=== PATIENT | male | born 1980 | race Two or more races ===

== ENCOUNTER 2016-10-26 10:33 | Emergency (ER) | payer BC ==
[2016-10-26 10:38] VITALS: BP 126/83; PULSE 64; TEMP 98.1; BMI 51.7
[2016-10-26] MEDS ORDERED: ERYTHROMYCIN 0.5% OPHTHALMIC OINTMENT 3.5 GM TUBE OD ONE (12:13)
[2016-10-26] MEDS ORDERED: ERYTHROMYCIN 0.5% OPHTHALMIC OINTMENT 3.5 GM TUBE ONE (12:15)
--- NOTE | 2016-10-26 12:18 | PDOC ---
History of Present Illness - General Chief Complaint: Eye Problem Stated Complaint: EYE IRRITATION Time Seen by Provider: 10/26/16 11:21 History Source: Patient Exam Limitations: No Limitations - History of Present Illness Initial Comments: 10/26/16 12:12 This is a 36yo man with PMH of left rotator cuff repair who presents today with sudden onset right eye stinging and FB sensation. 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 He denies trauma, headaches, changes in vision, nausea, vomiting fevers or chills. He denies recent metal work or welding. 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 Tob- denies ETOH- occasional Illicits- denies PMH- torn left rotator cuff PSH- Rotator cuff repair 04/13 Timing/Duration: 4-6 hours Severity: mild Associated Symptoms: reports: denies symptoms Past History - Past Medical History Allergies/Adverse Reactions: Allergies Allergy/AdvReac Type Severity Reaction Status Date / Time crab Allergy Verified 10/26/16 10:38 Home Medications: Ambulatory Orders Cyclobenzaprine HCl [Flexeril -] 10 mg PO TID 10/26/16 Oxycodone HCl/Acetaminophen [Percocet 5-325 mg Tablet] 1 - 2 tab PO Q4H Other medical history: obesity - Surgical History Appendectomy: Yes - Psycho/Social/Smoking Cessation Hx Suicidal Ideation: No Smoking History: Never smoked Information on smoking cessation initiated: No Hx Alcohol Use: No Drug/Substance Use Hx: No Substance Use Type: None Review of Systems - Review of Systems Able to Perform ROS?: Yes Is the patient limited Telugu proficient: No Constitutional: No: Symptoms Reported HEENTM: Yes: See HPI Respiratory: No: Symptoms reported Cardiac (ROS): No: Symptoms Reported ABD/GI: No: Symptoms Reported : No: Symptoms Reported Musculoskeletal: No: Symptoms Reported Integumentary: No: Symptoms Reported Neurological: No: Symptoms reported *Physical Exam - Vital Signs Last Vital Signs Temp Pulse Resp BP Pulse Ox 98.1 F 64 18 126/83 100 10/26/16 10:36 10/26/16 10:36 10/26/16 10:36 10/26/16 10:36 10/26/16 10:36 - Physical Exam General Appearance: Yes: Appropriately Dressed. No: Apparent Distress HEENT: positive: EOMI, OLGA, Other (fluorescein uptake to lateral sclera extending to iris without involvement of pupil.) Respiratory/Chest: positive: Lungs Clear, Normal Breath Sounds. negative: Chest Tender, Respiratory Distress, Accessory Muscle Use Cardiovascular: positive: Regular Rhythm, Regular Rate, S1, S2. negative: Edema , JVD, Murmur Gastrointestinal/Abdominal: positive: Normal Bowel Sounds, Soft. negative: Tender, Organomegaly Musculoskeletal: positive: Normal Inspection. negative: CVA Tenderness Extremity: positive: Normal Capillary Refill, Normal Inspection Integumentary: positive: Normal Color, Dry, Warm Neurologic: positive: ic design manager II-XII NML intact, Fully Oriented, Alert, Normal Mood/ Affect, Normal Response, Motor Strength 5/5 Medical Decision Making - Medical Decision Making 10/26/16 12:18 A: This is a 36yo man with PMH of left rotator cuff repair who presents today with sudden onset right eye stinging and FB sensation. 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 He denies trauma, headaches, changes in vision, nausea, vomiting fevers or chills. He denies recent metal work or welding. No rust ring visualized. Flourescein exam shows reuptake to lateral side of right iris not involving the pupil. No foreign body present. Snellen 20/25 bilaterally. EOM intact. P: Corneal abrasion - eye patch - EES ointment now and qid x5 days - ophtho f/u *DC/Admit/Observation/Transfer Diagnosis at time of Disposition: Corneal abrasion Qualifiers: Encounter type: initial encounter Laterality: right Qualified Code(s): S05.01XA - Injury of conjunctiva and corneal abrasion without foreign body, right eye, initial encounter - Discharge Dispostion Condition at time of disposition: Good Admit: No - Referrals Referrals: Scott Mercer [Primary Care Provider] - Galen Bell MD [Staff Physician] - - Patient Instructions Printed Discharge Instructions: DI for Corneal Abrasion Additional Instructions: Use erythromycin ointment every 6 hours for the next 5 days. Make an appointment with Dr. Bell if not improved in the next 3 days. Take tylenol for pain as directed by robotic weld technician's instructions. Wear eye patch for the next [address] Bell changes. Thank you for choosing us to provide your emergent health care needs today. - Post Discharge Activity Work/School Note: Back to Work
== END 2016-10-26 12:25 | disposition home or self-care (01) ==
LOC: JERFT 10:33
DX: S05.01XA Injury of conjunctiva and corneal abrasion without foreign body, right eye, initial encounter (principal); X58.XXXA Exposure to other specified factors, initial encounter; Y93.89 Activity, other specified; Y92.89 Other specified places as the place of occurrence of the external cause
CPT/HCPCS: 99281-25

== ENCOUNTER 2016-12-17 11:30 | Day surgery (SDC) | payer BC, OTHER ==
[2016-12-11 13:54] VITALS: BMI 50.8
[2016-12-17] MEDS ORDERED: MIDAZOLAM HCL 2 MG/2 ML SINGLE DOSE VIAL ONE ×3 (13:40→14:27)
[2016-12-17] MEDS ORDERED: BUPIVACAINE HCL/PF 0.5% (5MG/ML) 10 ML VIAL ONE (14:08)
[2016-12-17] MEDS ORDERED: morphine CARPU-JECT 10 MG/1 ML DISP.SYRIN ONE (14:08)
[2016-12-17] MEDS ORDERED: KETAMINE HCL 200 MG/20 ML VIAL ONE (14:27)
[2016-12-17] MEDS ORDERED: ONDANSETRON 4 MG/2 ML VIAL IVPUSH PRN (16:01)
[2016-12-17] MEDS ORDERED: oxyCODONE HCL 5 MG TABLET PO PRN (16:01)
[2016-12-17 16:48] VITALS: TEMP 98
[2016-12-17] MEDS ORDERED: oxyCODONE HCL 5 MG TABLET ONE (17:50)
[2016-12-17 18:25] VITALS: BP 133/85; PULSE 78
--- NOTE | 2016-12-18 11:01 | OP ---
DATE OF OPERATION: 12/17/2016 PREOPERATIVE DIAGNOSIS: Osteochondral defect, left ankle. POSTOPERATIVE DIAGNOSES: Osteochondral defect, left ankle, with chondromalacia, hypertrophic synovium, and joint debris. PROCEDURE PERFORMED: Arthroscopy, left ankle with chondroplasty, synovectomy, joint debridement, and debridement of osteochondral defect. SURGEON: Sly Dang MD [employer] OPERATOR: Sumit Hernandez CFA ANESTHESIA: Ricco Aviles MD; general anesthesia. The procedure consisted of the patient being brought in the operating room and gently transferred from the stretcher to the OR table with all bony prominences well padded. The left leg was prepared and draped in a sterile fashion. The patient was given intravenous antibiotics and copious irrigation throughout the procedure to minimize the risk of infection. A complete risks, benefits, and alternatives' discussion which was inclusive of, but not limited to, infection, bleeding, , paralysis, increased pain, and need for repeat surgery. Patient asked questions, understood the procedure, and desired to proceed with surgical treatment. An appropriate timeout which was inclusive of, but not limited to, correct site of surgery, anesthesiologist, surgeon, and type of surgery. Following sterile preparation and draping of the left ankle, gentle traction was applied of approximately 10 pounds with the patient placed in modified beach chair position. Medial and lateral portals were used to introduce the arthroscope and arthroscopic instruments. There was noted to be joint debris in the tibiotalar joint, and joint debridement was performed. There was noted to be hypertrophic synovium, and extensive partial synovectomy was performed. Joint debris was noted in the tibiotalar joint, and joint debridement was performed. There was noted to be integrity to it with scar overlying the medial and lateral gutters and lateral gutter, and this was debrided using shaver and radiofrequency wand. Osteochondral defect was noted to be present on the dome of the talus on the medial aspect, and debridement using shaver and radiofrequency wand of the osteochondral defect was performed. The ankle joint was then copiously irrigated with serous stained irrigant. The wounds were closed with Steri-Strips, Xeroform, 4 x 4's, sterile Webril, and Khalif bandage, and a cast brace for the ankle. The patient was then gently awoken from anesthesia without incident, transferred from the operating room to recovery in satisfactory condition. There were no intraoperative complications. Dominga [id number]
== END 2016-12-17 18:29 | disposition home or self-care (01) ==
LOC: FASU 11:30
PROVIDERS: ATTEND Orthopaedic Surgery
PROC: 0SB Lower Joints, Excision (ICD-10-PCS; 2016-12-17)
PROC: 0QBM4ZZ Excision of Left Tarsal, Percutaneous Endoscopic Approach (ICD-10-PCS; 2016-12-17)
PROC: 0SBG4ZZ Excision of Left Ankle Joint, Percutaneous Endoscopic Approach (ICD-10-PCS; principal; 2016-12-17 14:57)
DX: M95.8 Other specified acquired deformities of musculoskeletal system (principal); M94.272 Chondromalacia, left ankle and joints of left foot; M67.272 Synovial hypertrophy, not elsewhere classified, left ankle and foot; M25.9 Joint disorder, unspecified
CPT/HCPCS: 94760

== ENCOUNTER 2017-02-19 07:40 | Day surgery (SDC) | payer BC, OTHER ==
[2017-02-15 09:53] VITALS: BMI 49.6
[2017-02-19] MEDS ORDERED: PROPOFOL 20 ML ONE ×2 (08:09)
[2017-02-19 08:56] VITALS: TEMP 98
[2017-02-19 10:39] VITALS: BP 149/85; PULSE 80
--- NOTE | 2017-02-20 11:59 | PATH ---
Surgical Pathology Report Patient Name: MAGDIEL POLK [facility]. Rec. #: [id number] /Age/Gender: 1980 (Age: 36) / M Account: [id number] Location: [facility]-ENDOSCOPY Taken: 02/19/2017 Received: 02/19/2017 Reported: 02/20/2017 Physicians: Fam Smith M.D. Specimen(s) Received A: BX ANTRUM AND BODY B: BX FUNDIC GLAND POLYP Clinical History Preoperative diagnosis: Pre-evaluation of bariatric surgery Postoperative diagnosis: Gastric polyps, rule out H. Pylori Final Diagnosis A. STOMACH, ANTRUM AND, BODY, BIOPSY: POLYPOID GASTRIC ANTRAL AND BODY MUCOSA WITH REACTIVE GASTROPATHY. IMMUNOHISTOCHEMICAL STAIN FOR H. PYLORI IS NEGATIVE. B. STOMACH, FUNDIC GLAND POLYP, BIOPSY: FUNDIC GLAND POLYP. IMMUNOHISTOCHEMICAL STAIN FOR H. PYLORI IS NEGATIVE. Electronically Signed Raysa Vieyra M.D. Gross Description A. Received in formalin, labeled "biopsy antrum and body" are 2 steve, irregular portions of soft tissue measuring 0.4 and 0.5 cm. in greatest dimension. The specimens are submitted in toto in one cassette. B. Received in formalin, labeled "biopsy fundic gland" is a steve, irregular portion of soft tissue measuring 0.4 cm. in greatest dimension. The specimen is submitted in toto in one cassette. 02/19/201702/19/2017
== END 2017-02-19 09:20 | disposition home or self-care (01) ==
LOC: JASU-ENDO 07:40
PROVIDERS: ATTEND Internal Medicine Gastroenterology
PROC: 0DB68ZX Excision of Stomach, Via Natural or Artificial Opening Endoscopic, Diagnostic (ICD-10-PCS; principal; 2017-02-19 08:00)
DX: Z13.818 Encounter for screening for other digestive system disorders (principal); K31.7 Polyp of stomach and duodenum
CPT/HCPCS: 88305-TC; 88342-TC

== ENCOUNTER 2017-09-20 14:30 | Inpatient (IN) | payer BC, OTHER ==
[2017-10-16 11:30] VITALS: BMI 33.6
[2017-10-17] MEDS ORDERED: ONDANSETRON 4 MG/2 ML VIAL IVPUSH PRN ×2 (12:19→18:12)
[2017-10-17] MEDS ORDERED: BUPIVACAINE HCL/PF (5 MG/ML) 30 ML VIAL IJ ONE (13:28)
--- NOTE | 2017-10-17 13:48 | OP ---
Operative Note - Note: Operative Date: 10/17/17 Pre-Operative Diagnosis: Morbid Obesity. Hypertension Operation: Laparoacopic Vertical Sleeve Gastrectomy. Diagnostic Laparoscopy Findings: Greater curve sleeve gastrectomy performed with #[address] Post-Operative Diagnosis: Same as Pre-op Surgeon: Bo Gomes Cook Italian Style Food: Rah Mahoney Anesthesia: General Specimens Removed: Greater curve of stomach Estimated Blood Loss (mls): 30 Operative Report Dictated: Yes
[2017-10-17] MEDS: METOCLOPRAMIDE HCL INJECTION 10 MG/2 ML VIAL IVPUSH SCH ×2 (14:05→23:23)
--- NOTE | 2017-10-17 14:17 | OP ---
DATE OF OPERATION: 10/17/2017 PREOPERATIVE DIAGNOSES: 1. Morbid obesity. 2. Hypertension. POSTOPERATIVE DIAGNOSES: 1. Morbid obesity. 2. Hypertension. 3. Abdominal adhesions. PROCEDURE PERFORMED: 1. Laparoscopic vertical sleeve gastrectomy. 2. Diagnostic laparoscopy. 3. Laparoscopic lysis of adhesions. OPERATING SURGEON: Bo Gomes MD IT SERVICE TECHNICIAN: Rah Mahoney MD ANESTHESIA: General. ESTIMATED BLOOD LOSS: 30 mL. DISPOSITION: Patient transferred to recovery room in stable condition. DESCRIPTION OF PROCEDURE: The patient was brought into the operating room, placed on the OR table in the supine position. All precautions were taken initially including padding for the back and the feet, and Venodyne boots were placed on both lower extremities. At that point, the abdomen was prepped and draped in the usual manner. A Veress needle was placed in the left upper quadrant, and a pneumoperitoneum was established. A No. 12 bladeless trocar was placed in the left upper quadrant. Through that trocar, laparoscopic camera was placed. Under direct vision, a No. 15 bladeless trocar was placed in the midline in a supraumbilical position followed by a No. 5 bladeless trocar in the right upper quadrant and a No. 5 bladeless trocar below the left costal margin. A Tg liver retractor was then placed in the epigastrium to retract the left lobe of the liver. The left lobe had some adhesions attached to it from the patient's previous liver biopsy. These were adhesions from the omentum in the liver, and they had to be removed or lysed with the LigaSure device. This was done in a safe manner starting from the inferior portion of the liver and extending along the surface up until just before the spleen. Once all of the adhesions were cleaned, the liver retractor was then used to retract the left lobe of the liver, and the patient was placed in a 20-degree reverse Trendelenburg position by anesthesia. At this point, the pylorus was noted on the distal stomach, and from there, 6 cm was measured proximally on the greater curve. As the operating surgeon lifted the stone toward the anterior abdominal wall, the assistant men's soccer coach surgeon retracted the gastrocolic ligament inferiorly. The LigaSure device was then used to dissect the gastrocolic ligament and the short gastric vessels off the greater curve of the stomach. This continued in a superior and vertical direction until the final short gastric vessel between the superior pole of the spleen and the proximal fundus was divided. At this juncture, the No. 40 bougie, which had been placed by anesthesia early in the surgery was now advanced all the way distal to the antrum. With the bougie held along the lesser curve, a series of audrey were performed with the first 2 being black load audrey 6 cm in length along the bougie. This was followed by a series of purple load audrey also along the bougie until the final staple was fired in the left upper quadrant. The greater curve was now completely detached from the lesser curve. It should be noted that prior to firing each stapler, both the anterior and posterior villasenor were checks that they were equal, and the area of the esophagogastric junction approximately 1 cm serosa remained on the anterior and posterior surfaces. At this juncture, the bougie was removed by Anesthesia, and Dr. Mahoney scrubbed out to perform upper endoscopy. The details are described in his procedure note, but it was placed down through the sleeve all the way to the antrum and passed without any difficulty showing no obstruction and also when it was distended with air and there was saline around the staple line, there were no signs of any leakage. At this juncture, the resected greater curve was removed through the No. 15 trocar site and sent off the field as specimen to pathology. Under direct vision, the No. 15 and No. 12 trocar sites were closed with Endo Close device to prevent internal hernia and prevent bleeding. Under direct vision, all trocars were removed and pneumoperitoneum was released. All trocar sites were then infiltrated with 0.25% Marcaine. The No. 5 and 12 trocars were first closed with 3-0 Vicryl on the subcutaneous tissue and then all trocar sites were closed with 4-0 Biosyn in a subcuticular fashion. Dressings were applied. The patient was awoken from anesthesia and transferred out of the operating room to the recovery room in stable condition. Dominga [id number]
[2017-10-17] MEDS ORDERED: LABETALOL HCL 5 MG/1 ML (100MG/20 ML VIAL) IVPUSH ONE ×2 (14:38→15:00)
--- NOTE | 2017-10-17 15:29 | OP ---
Operative Note - Note: Operative Date: 10/17/17 Pre-Operative Diagnosis: Rule out leak/obstruction s/p vertical sleeve gastrectomy Operation: EGD Post-Operative Diagnosis: Other (No leak/obstruction) Surgeon: Rah Mahoney Anesthesia: General Specimens Removed: None Estimated Blood Loss (mls): 0 Operative Report Dictated: Yes
[2017-10-17 15:42] LABS: HEMATOCRIT 43.5 % (35.4-49); HEMOGLOBIN 14.9 GM/dL (11.7-16.9); MCH 28.6 pg (25.7-33.7); MCHC 34.2 g/dl (32.0-35.9); MEAN CELL VOLUME 83.6 fl (80-96); MEAN PLT VOLUME 9.3 fl (7.5-11.1); PLATELET COUNT 166 K/MM3 (134-434); RDW 13.5 % (11.9-15.9); WHITE BLOOD COUNT 9.1 K/mm3 (4.0-10.0)
[2017-10-17] MEDS ORDERED: hydrALAZINE HCL 20 MG/ML VIAL IVPUSH ONE ×2 (15:46→18:15)
--- NOTE | 2017-10-17 15:57 | OP ---
DATE OF OPERATION: 10/17/2017 SURGEON: Inna Mahoney M.D. PREOPERATIVE DIAGNOSIS: Rule out leaks and/or obstruction status post laparoscopic vertical sleeve gastrectomy. POSTOPERATIVE DIAGNOSIS: No leak, no obstruction. PROCEDURE: Upper endoscopy/esophagogastroduodenoscopy. ESTIMATED BLOOD LOSS: 0 mL DRAINS: None. ANESTHESIA: GET REASON FOR PROCEDURE: This is a 37-year-old male who is undergoing a laparoscopic vertical sleeve gastrectomy by Dr. Bo Gomes; to evaluate for obstruction and/or leak, an upper endoscopy was requested. DESCRIPTION OF PROCEDURE: The endoscope was placed into the patient's mouth and advanced into the esophagus, gastroesophageal junction, gastric pouch, up to the level of the pylorus. The sleeve was noted to be intact and no evidence of obstruction or leak was noted. The stomach was then suctioned and the endoscope removed. The remainder of the procedure was then continued. INNA MAHONEY M.D. DEEPA/[id number]
[2017-10-17 16:05] LABS: ALBUMIN 3.4 g/dl (3.4-5.0); ALK PHOS 116 U/L (45-117); ANION GAP 11 MMOL/L (8-16); BILIRUBIN,TOTAL 0.5 mg/dL (0.2-1.0); BLOOD UREA NITROGEN 10 mg/dL (7-18); CALCIUM 8.5 mg/dL (8.5-10.1); CHLORIDE 108 mmol/L (98-107); CO2 21 mmol/L (21-32); CREATININE 0.5 mg/dL (0.7-1.3); GLUCOSE,RANDOM 217 mg/dL (74-106); SGPT/ALT 67 U/L (12-78); SODIUM 140 mmol/L (136-145)
[2017-10-17 16:07] LABS: SGOT/AST 56 U/L (15-37)
[2017-10-17] MEDS: SODIUM CHLORIDE 1,000 ML IV SCH (16:45)
--- NOTE | 2017-10-17 17:57 | CONSULT ---
Consultation: REQUESTING PROVIDER: Ramirez Araya CONSULT REQUEST: We have been asked to medically evaluate this patient for elevated blood pressure post operation . HISTORY OF PRESENT ILLNESS: 37 year old male with pmhx of HTN , morbid obesity, fatty liver,pre diabetics, failed gastric sleeve 2016, presented to the hospital today for gastric sleeve surgery that was done today. pt BP was elevated after procedure up to 174/94 , pt reports sever occipital headache , /10, local , non radiating, continuous , associated with nausea but no vomiting, he had similiar headache before but not as bad as this. pt also reports light headedness after the procedure , especially when he change his position, pt denies any blurry vision, weakness, numbness, tingling in any extremities. Pt reports med sternal chest pain 5/5 started after the procedure he describe it as discomfort , unknown the pain duration. now pain subsided to 4/10. pain is local not radiating to arm or neck, not associated with diaphoresis or cough , no sob or orthopnea . Pt reports abdominal pain in incision site 12/04 , denies any D/C/,hematuria, dysuria, or swelling in his feet, denies any sick contact or recent travel, denies any ear pain, sore throat. pt has blood pressure and his number around 140 systolic he was taking Bystolic 5 mg daily , off medicine for one year , he did not receive any meds before the surgery pt was given Hydralazine 10 IV push and Labetolol 10 IV push that drop his BP to 152/94 , and HR 66. and started on morphine 1 mg IV Q 3 hr and 150 CC/hr of NS . PMHX: HTN, pre diabetes, fatty liver, PSHX: failed Gastric sleeve 2017, appendectomy, left shoulder surgery, left ankle tendon rupture , FHX: none ALLergies: shellfish, Meds: bystolic 5mg (off med since a year ) Social hx : smoke 5 cig /a day on and off since age of 20, denies any alcohol or drug use. REVIEW OF SYSTEMS: CONSTITUTIONAL: Absent: fever, chills, diaphoresis, generalized weakness, malaise, loss of appetite, weight change HEENT: occipital headache Absent: rhinorrhea, nasal congestion, throat pain, throat swelling, difficulty swallowing, mouth swelling, ear pain, eye pain, visual changes CARDIOVASCULAR: chest pain, lightheadedness, Absent: syncope, palpitations, irregular heart rate, peripheral edema RESPIRATORY: Absent: cough, shortness of breath, dyspnea with exertion, orthopnea, wheezing, stridor, hemoptysis GASTROINTESTINAL:abdominal pain, nausea, Absent: abdominal distension, vomiting, diarrhea, constipation, melena, hematochezia GENITOURINARY: Absent: dysuria, frequency, urgency, hesitancy, hematuria, flank pain, genital pain MUSCULOSKELETAL: Absent: myalgia, arthralgia, joint swelling, back pain, neck pain SKIN: Absent: rash, itching, pallor HEMATOLOGIC/IMMUNOLOGIC: Absent: easy bleeding, easy bruising, lymphadenopathy, frequent infections ENDOCRINE: Absent: unexplained weight gain, unexplained weight loss, heat intolerance, cold intolerance NEUROLOGIC: Absent: headache, focal weakness or paresthesias, dizziness, unsteady gait, seizure, mental status changes, bladder or bowel incontinence PSYCHIATRIC: Absent: anxiety, depression, suicidal or homicidal ideation, hallucinations. PHYSICAL EXAMINATION Vital Signs - 24 hr 10/17/17 10/17/17 10/17/17 10:42 10:46 13:51 Temperature 98.7 F 98.2 F Pulse Rate 76 88 Respiratory 18 14 Rate Blood Pressure 130/87 156/101 O2 Sat by Pulse 98 98 Oximetry (%) 10/17/17 10/17/17 10/17/17 14:05 14:20 14:35 Temperature Pulse Rate 63 64 62 Respiratory 16 16 16 Rate Blood Pressure 187/112 175/91 180/115 O2 Sat by Pulse 100 100 100 Oximetry (%) 10/17/17 10/17/17 10/17/17 14:50 15:05 15:20 Temperature Pulse Rate 66 68 59 L Respiratory 16 16 16 Rate Blood Pressure 173/113 174/113 170/107 O2 Sat by Pulse 100 100 100 Oximetry (%) 10/17/17 10/17/17 10/17/17 15:35 15:50 17:39 Temperature 97.0 F L Pulse Rate 56 L 60 66 Respiratory 16 16 18 Rate Blood Pressure 165/105 167/104 152/96 O2 Sat by Pulse 100 100 Oximetry (%) GENERAL:AAOx3 in AND HEAD: NC/AT EYES: KERLINE, EOMI ,sclera anicteric, conjunctiva clear. EARS, NOSE, THROAT: Ears normal, nares patent, oropharynx clear without exudates. Moist mucous membranes. NECK: Normal range of motion, supple LUNGS: CTA B/L , No wheezes, and no crackles. No accessory muscle use. HEART:RRR, normal S1 and S2 without MRG ABDOMEN: Soft, diffuse tenderness , distended, normoactive bowel sounds, no guarding, multiple surgical incision covered with gauze and one with minimal oozing MUSCULOSKELETAL: Normal range of motion at all joints. No CVA tenderness. UPPER EXTREMITIES: 2+ pulses, warm, well-perfused. No cyanosis. No clubbing. Cap refill <2 seconds. 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 No calf tenderness. No peripheral edema. strength 5/5 B/L in hip felxion and extension , leg flexion , plantar flexion and extension , sensation intact . NEUROLOGICAL: Cranial nerves II-XII intact. Normal speech. gait not observed , no focal deficit. PSYCHIATRIC: Cooperative. Good eye contact. Appropriate mood and affect. SKIN: Warm, dry, normal turgor,rash fungus between toes Laboratory Results - last 24 hr 10/17/17 10/17/17 14:30 14:30 WBC 9.1 RBC 5.20 Hgb 14.9 Hct 43.5 MCV 83.6 MCH 28.6 MCHC 34.2 RDW 13.5 Plt Count 166 MPV 9.3 Sodium 140 Potassium 5.0 Chloride 108 H Carbon Dioxide 21 Anion Gap 11 BUN 10 Creatinine 0.5 L Creat Clearance w eGFR > 60 Random Glucose 217 H Calcium 8.5 Total Bilirubin 0.5 AST 56 H D ALT 67 Alkaline Phosphatase 116 D Total Protein 7.0 Albumin 3.4 Active Medications Generic Name Dose Route Start Last Admin Trade Name Freq PRN Reason Stop Dose Admin Fentanyl 50 mcg 10/17/17 12:19 10/17/17 14:05 Sublimaze Injection - IVPUSH 50 mcg [id number] PRN Administration PAIN-PACU ORDER X 4 DOSES ONLY Fentanyl 100 mcg 10/17/17 15:00 Sublimaze Injection - IVPUSH 10/17/17 15:01 ONCE ONE Hydralazine HCl 10 mg 10/17/17 15:46 10/17/17 15:40 Apresoline Injection - IVPUSH 10/17/17 15:47 10 mg ONCE ONE Administration Lactated Ringer's 1,000 mls @ 75 mls/hr 10/17/17 12:30 Lactated Ringers Solution IV ASDIR ANDRES Famotidine/Sodium Chloride 50 mls @ 100 mls/hr 10/17/17 22:00 Pepcid 20 Mg Premixed Ivpb - IVPB BID ANDRES Sodium Chloride 1,000 mls @ 150 mls/hr 10/17/17 13:45 Normal Saline - IV ASDIR ANDRES Labetalol HCl 10 mg 10/17/17 14:38 10/17/17 14:28 Normodyne Injection - IVPUSH 10/17/17 14:39 10 mg ONCE ONE Administration Labetalol HCl 20 mg 10/17/17 15:00 10/17/17 14:55 Normodyne Injection - IVPUSH 10/17/17 15:01 20 mg ONCE ONE Administration Metoclopramide HCl 10 mg 10/17/17 13:45 10/17/17 14:05 Reglan Injection - IVPUSH 10 mg Q6H ANDRES Administration Morphine Sulfate 1 mg 10/17/17 13:42 Morphine Injection - IVPUSH Q3H PRN PAIN LEVEL 1-5 Ondansetron HCl 4 mg 10/17/17 12:19 10/17/17 14:10 Zofran Injection IVPUSH 4 mg Q6H PRN Administration NAUSEA AND/OR VOMITING Ondansetron HCl 4 mg 10/17/17 13:39 Zofran Injection IVPUSH Q4H PRN NAUSEA AND/OR VOMITING CBC, BMP 10/17/17 14:30 10/17/17 14:30 EKG: Sinus ana @ 58, QTC 418 ASSESSMENT/PLAN: 37 year old male with pmhx of HTN, Obesity , fatty liver , prediabetic, s/p gastric sleeve surgery today, medical team was consulted to evaluate him for hypertensive urgency. # Hypertensive urgency likely due to none compliant with his meds and pain post procedure * Pt has HTN on his base line and was taking bystolic 5 mg po daily(off med since a year) , * pt BP went up to 174/113 after the gastric sleeve surgery * pt was given Labetolol 10 IV push and Hydralazin 10 IV push drop his BP to 152 /94 * Hydralazin 10 IV PRN for systolic > 160 or diastolic > 100 * will restart bystolic 5 once able to take oral meds * F/U head CT to R/O IC bleeding given his blood pressure elevation * avoid Beta blokers due to low HR # occipital headache, acute , likely due to anesthesia vs HTN vs stress post operation * pain is acute started after procedure -10/04 , no focal deficit , CNII-XII Grossly intact * Head CT without contrast to R/O IC Bleeding or mass effect * IV Tylenol 1000 mg Q6hr PRN for pain # Chest pain unlikely ACS likely musculo skeletal * med sternal local non radiated , unknown duration * follow Trop X2 * EKG with non specific st, t wave changes ( t wave inversion in V1 V2 , flat T wave in V3 , EKG from May 2017 with T inversion in V1 ) * repeat EKG in AM * no family history of sudden or arrhythmias. * cont tele monitor # Pre diabetics * HGBA1 c * will monitor Blood sugar * will improve after loosing weight post gastric sleeve # Vertical Gastric sleeve , * POD# 1 * Pain control per surgery Morphine 1 mg IV Q 3 hr for pain , fentanile patch * resume fluids IV NS @ 150 CC/hr * follow surgery recommendations * incentive spirometry Q 1 hr * Zofran and metoclopramide by surgery team for nausea # Carmen pedis * Nystatin cream BID # FEN * F: NS @ 150 CC/hr * E: WNL , mnitor * N: NPO for now , except 2-3 ice chips per hour # Proph * SCDS both legs # Dispo * monitor in tele * Night team to follow up on Head CT and repeat EKG 19.00 and trop 23.30 Dispo: We will continue to follow the patient. Thank you for this consultative opportunity. Visit type - Emergency Visit Emergency Visit: Yes ED Registration Date: 10/17/17 Care time: The patient presented to the Emergency Department on the above date and was hospitalized for further evaluation of their emergent condition. - New Patient This patient is new to me today: Yes Date on this admission: 10/17/17 - Critical Care Critical Care patient: No
[2017-10-17] MEDS ORDERED: LACTATED RINGERS SOLUTION 1,000 ML IV SCH (18:15)
[2017-10-17] MEDS: MORPHINE SULFATE 2 MG/ML VIAL IVPUSH PRN (18:28)
--- NOTE | 2017-10-17 18:38 | PN ---
Teaching Attending Note Name of Resident: Ha Mims ATTENDING PHYSICIAN STATEMENT I saw and evaluated the patient. I reviewed the resident's note and discussed the case with the resident. I agree with the resident's findings and plan as documented. Consult: for HTN HPI: 37 y/o gentleman with h/o HTN( off meds for 1 yr) , L shoulder sx, pre- diabetes, appendectomy, liver bx, and attempted gastric sleeve sx last year who presented for gastric sleeve sx. after surgery his BP was in 170s and was given IV hydralazine. at this point , he is on the floor, has posterior WANG , denies any visual changes , double vision , weakness, numbness or tingling . HE has L sided shoulder pain at the Claviculoacromial joint which is pulsating and started few min ago. he has no SOB but feels it is hard to take deep breath due to abd pain. Abd pain is 8/10 , did not pass gas yet. OBJECTIVE: NAD, awake , alert, and oriented. HEENT: no LAP, symmetric face, tongue at mid line , MMM, EOMI, round equal pupils , reactive to light. CV: RRR, NO MRG Lungs: CATB Abd: obese, soft, ND , TTP in epigastric area, tape on incision sites. the umbilical tape is saturated with blood in lower part. hypoactive BS. LE : no edema . has fungal infection among last 3 interdigital webs . Neuro : symmetric face, tongue at mid line , MMM, EOMI, round equal pupils , reactive to light. uvula at mid line . nl facial sensation . strength 5/5 in upper and lower extremities proximally and distally except for 4/5 in hip flexion limited due to abd pain MS: TTP over L shoulder at acromio-clavicular joint ASSESSMENT AND PLAN: 37 y/o gentleman with h/o HTN( off meds for 1 yr) , L shoulder sx, pre-diabetes , appendectomy, liver bx, and attempted gastric sleeve sx last year who presented for gastric sleeve sx. Medical team was consulted for HTN urgency 1- Hypertensive urgency: due to untreated essential HTN and the stress of surgery and pain . BP improved to 150 systolic now. patient has WANG 7/10 . - give hydralazine PRN for SBP > 160, or DBP > 100. avoid BB at this point as HR is 62. - when able to take oral meds, will place on PO meds - check head CT to r/o ICH given HTN - treat pain to improve BP. - careful with IVF. 2- L sided shoulder pain: liekly MS due to positioning in OR. wang reproducible on exam. - Stat EKG with sinus rhythm, TWI in V1,V2. NO ST changes. TWI in III. EKG form may with TWI in V1, and flat T wave in III. - will repeat EKG in 30 min - check trop x 2. - tele with no events so far 3- S/p GAstric sleeve : - pain management and NPO per surgery team. - DVT px is recommended when safe by surgeon - cont SCDs. - add incentive spirometer 4- Obesity: check A1c 5- Tinea pedis : start nystatin powder Thanks for this consult. will follow
[2017-10-17] MEDS ORDERED: ACETAMINOPHEN 1000 MG/100 ML VIAL (NON FORMULARY) IVPB PRN (18:40)
[2017-10-17] MEDS ORDERED: hydrALAZINE HCL 20 MG/ML VIAL IVPUSH PRN (18:52)
[2017-10-17] MEDS ORDERED: FAMOTIDINE 20 MG/50 ML IVPB 20 MG/50 ML MG IVPB SCH (22:00)
[2017-10-17] MEDS: NYSTATIN 100,000 UNIT/GM TOPICAL CREAM 15 GM TUBE TP SCH (23:27)
[2017-10-17] MEDS: NYSTATIN POWDER 100,000 UNITS/GM - 15 GM TOPICAL POWDER TP SCH (23:27)
[2017-10-17] MEDS ORDERED: PT OWN MED DRAWER 7, Y5N ONE ×2 (23:29→23:44)
[2017-10-17] MEDS: FAMOTIDINE 20 MG/50 ML IVPB 20 MG/50 ML MG IVPB SCH (23:33)
[2017-10-18] MEDS: METOCLOPRAMIDE HCL INJECTION 10 MG/2 ML VIAL IVPUSH SCH ×3 (04:00→13:41)
[2017-10-18 07:54] LABS: HEMOGLOBIN 13.3 GM/dL (11.7-16.9); MCH 27.4 pg (25.7-33.7); MCHC 33.3 g/dl (32.0-35.9); MEAN CELL VOLUME 82.4 fl (80-96); MEAN PLT VOLUME 8.8 fl (7.5-11.1); PLATELET COUNT 186 K/MM3 (134-434); RBC 4.85 M/mm3 (4.00-5.60); RDW 13.3 % (11.9-15.9); WHITE BLOOD COUNT 12.2 K/mm3 (4.0-10.0)
[2017-10-18] MEDS: MORPHINE SULFATE 2 MG/ML VIAL IVPUSH PRN (08:01)
--- NOTE | 2017-10-18 08:19 | PN ---
Progress Note (short form) - Note Progress Note: surgery POD #1 laparoscopic vertical gastric sleeve. Patient had episode of Hypertensive urgency post op with H/A, HTN in addition to left shoulder/chest pain. Head CT was unremarkable and stat EKG revealed sinus rhythm, TWI in V1, V2. NO ST changes. TWI in III. EKG form may with TWI in V1, and flat T wave in III. Troponin I was WNL. Shoulder pain was most likely 2/2 positioning in the OR which is better this morning. Patient states he is having mostly focal epigastric pain and pain when he talks but the pain is tolerable. He is not passing gas yet but has been OOB to the bathroom to void. He denies any CP, SOB , N/V, fever or chills this morning. Vital Signs Temp 97.8 F 10/18/17 05:00 Pulse 94 H 10/18/17 05:00 Resp 20 10/18/17 05:00 BP 141/85 10/18/17 05:00 Pulse Ox 100 10/17/17 21:00 Intake & Output 10/17/17 10/17/17 10/18/17 11:59 23:59 11:59 Intake Total 1950 Output Total 20 Balance 1930 Weight 215 lb 311 lb 12.8 oz Intake: IV 1950 Normal Saline - 1,000 ml 300 @ 150 mls/hr IV ASDIR ANDRES Rx#:[id number] Output: Urine 0 Estimated Blood Loss 20 Other: Voiding Method Toilet Toilet # Unmeasured Voids Void 2 Height 5 ft 7 in 5 ft 7.5 in Body Mass Index (BMI) 33.6 Weight Measurement Method Stated by Patient Standing Scale PE: A&Ox3, NAD unlabored resp on RA ABD: Obese, diffuely TTP throughout with focal ttp over epigastrum and RUQ appropriate to status. Dresisngs c/d/i with some dried blood over midline incision, no active d/c, surrounding tissue with no evidence of tracking erythema. B/L LE compartments soft, supple and non-tender with +2 DP pulses. Problem List - Problems (1) S/P laparoscopic sleeve gastrectomy Assessment/Plan: POD #1 lap gastric sleeve in the setting of hypertensive urgency, stable with antihypertensives. 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 Code(s): Z98.84 - BARIATRIC SURGERY STATUS
[2017-10-18 08:43] LABS: ALBUMIN 3.4 g/dl (3.4-5.0); ANION GAP 11 MMOL/L (8-16); BLOOD UREA NITROGEN 8 mg/dL (7-18); CALCIUM 8.7 mg/dL (8.5-10.1); CHLORIDE 104 mmol/L (98-107); CO2 25 mmol/L (21-32); CREATININE 0.6 mg/dL (0.7-1.3); GLUCOSE,RANDOM 175 mg/dL (74-106); POTASSIUM 4.1 mmol/L (3.5-5.1); SGOT/AST 41 U/L (15-37); SODIUM 140 mmol/L (136-145)
[2017-10-18 08:45] LABS: ALK PHOS 84 U/L (45-117); BILIRUBIN,TOTAL 0.5 mg/dL (0.2-1.0); SGPT/ALT 61 U/L (12-78); TOT PROT 6.9 g/dl (6.4-8.2)
--- NOTE | 2017-10-18 08:45 | PN ---
Progress Note (short form) - Note Progress Note: Post op day#1.S/p gastric sleeve placement under Ga uneventful.Patient stable.No any anesthesia related problem.Patient Dc from the anesthesia care.
[2017-10-18] MEDS: FAMOTIDINE 20 MG/50 ML IVPB 20 MG/50 ML MG IVPB SCH (10:10)
--- NOTE | 2017-10-18 12:02 | EKG ---
Test Reason : Blood Pressure : / mmHG Vent. Rate : 071 BPM Atrial Rate : 071 BPM P-R Int : 192 ms QRS Dur : 096 ms QT Int : 400 ms P-R-T Axes : 045 -01 007 degrees QTc Int : 434 ms SINUS RHYTHM WITH MARKED SINUS ARRHYTHMIA MINIMAL VOLTAGE CRITERIA FOR LVH, MAY BE NORMAL VARIANT BORDERLINE ECG WHEN COMPARED WITH ECG OF 17-OCT-2017 18:26, T WAVE INVERSION NO LONGER EVIDENT IN ANTERIOR LEADS Confirmed by TAMERA CARRANZA MD ([id number]) on 10/18/2017 12:01:41 PM Referred By: Bo Gomes Confirmed By:TAMERA CARRANZA MD
--- NOTE | 2017-10-18 12:04 | EKG ---
Test Reason : Blood Pressure : / mmHG Vent. Rate : 058 BPM Atrial Rate : 058 BPM P-R Int : 174 ms QRS Dur : 100 ms QT Int : 420 ms P-R-T Axes : 013 -04 003 degrees QTc Int : 412 ms SINUS BRADYCARDIA MODERATE VOLTAGE CRITERIA FOR LVH, MAY BE NORMAL VARIANT BORDERLINE ECG WHEN COMPARED WITH ECG OF 16-OCT-2017 11:06, COMPARED TO EKG NO SIGNIFICANT CHANGE IS FOUND Confirmed by TAMERA CARRANZA MD ([id number]) on 10/18/2017 12:04:02 PM Referred By: Bo Gomes Confirmed By:TAMERA CARRANZA MD
--- NOTE | 2017-10-18 12:52 | PN ---
Physical Exam: SUBJECTIVE: Patient seen and examined at bedside. Pt still complains of persistent chest pain, non-radiating. Also reports mild sob. Denies headaches/ dizziness, fever/chills, nausea/vomiting, urinary symptoms. OBJECTIVE: Vital Signs Temperature 97.8 F 10/18/17 13:00 Pulse Rate 90 10/18/17 13:00 Respiratory Rate 20 10/18/17 13:00 Blood Pressure 137/88 10/18/17 13:00 O2 Sat by Pulse Oximetry (%) 100 10/18/17 13:00 GENERAL:AAOx3, NAD. Obese. HEENT: NC/AT. EOMI. Moist mucus membranes. NECK: Normal range of motion, supple LUNGS: CTA B/L , No wheezes, and no crackles. No accessory muscle use. HEART:RRR, normal S1 and S2 without MRG ABDOMEN: Soft, diffuse tenderness, normoactive bowel sounds, no guarding, surgical dressings clear/dry/intact. MUSCULOSKELETAL: Normal range of motion at all joints. No CVA tenderness. UPPER EXTREMITIES: 2+ pulses, warm, well-perfused. No cyanosis. No clubbing. Cap refill <2 seconds. 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 No calf tenderness. No peripheral edema. strength 5/5 B/L in hip felxion and extension , leg flexion , plantar flexion and extension, sensation intact. NEUROLOGICAL: Cranial nerves II-XII intact. Normal speech. gait not observed , no focal deficit. PSYCHIATRIC: Cooperative. Good eye contact. Appropriate mood and affect. SKIN: Warm, dry, normal turgor, rash fungus between toes CBC, BMP 10/18/17 06:15 10/18/17 06:15 Active Medications Acetaminophen (Ofirmev Injection -) 1,000 mg IVPB Q6H PRN PRN Reason: PAIN LEVEL 4 - 6 Last Admin: 10/18/17 08:01 Dose: 1,000 mg Acetaminophen (Tylenol -) 325 mg PO Q4H PRN PRN Reason: HEADACHE Hydralazine HCl (Apresoline Injection -) 10 mg IVPUSH Q4H PRN PRN Reason: HYPERTENSION Lactated Ringer's (Lactated Ringers Solution) 1,000 mls @ 75 mls/hr IV ASDIR ANDRES Last Admin: 10/17/17 23:27 Dose: 75 mls/hr Sodium Chloride (Normal Saline -) 1,000 mls @ 150 mls/hr IV ASDIR ANDRES Last Admin: 10/17/17 16:45 Dose: 0 mls Famotidine/Sodium Chloride (Pepcid 20 Mg Premixed Ivpb -) 20 mg in 50 mls @ 100 mls/hr IVPB BID ANDRES Last Admin: 10/18/17 10:10 Dose: 100 mls/hr Sodium Chloride (Normal Saline -) 1,000 mls @ 75 mls/hr IV ASDIR ANDRES Metoclopramide HCl (Reglan Injection -) 10 mg IVPUSH Q6H [facility] Last Admin: 10/18/17 08:00 Dose: Not Given Morphine Sulfate (Morphine Sulfate) 1 mg IVPUSH Q3H PRN PRN Reason: PAIN LEVEL 1-5 Last Admin: 10/18/17 08:01 Dose: 1 mg Nebivolol (Bystolic -) 5 mg PO DAILY [facility] Nystatin (Mycostatin Cream -) 1 applic TP BID [facility] Last Admin: 10/17/17 23:27 Dose: Not Given Nystatin (Nystop Powder -) 1 applic TP DAILY [facility] Last Admin: 10/17/17 23:27 Dose: Not Given Ondansetron HCl (Zofran Injection) 4 mg IVPUSH Q4H PRN PRN Reason: NAUSEA AND/OR VOMITING Oxycodone HCl (Roxicodone -) 5 mg PO Q4H PRN PRN Reason: PAIN LEVEL 1-5 IMAGING: GI series: No evidence of extravasation of contrast, gastric leak, or gastric outlet obstruction. ASSESSMENT/PLAN: 37M with pmhx of HTN, Obesity, fatty liver, prediabetic, s/p gastric sleeve surgery today, medical team was consulted to evaluate him for hypertensive urgency. #Hypertensive urgency; likely due to non-compliance with his meds and pain post procedure; BP today 141/85. -started on Nebivolol 5 mg PO QD -Hydralazine 10 IVP Q4H PRN for systolic > 160 or diastolic > 100 -Head CT showed no focal intracranial lesion or hemorrhage seen -cont to monitor BP #occipital headache, acute , likely due to anesthesia vs HTN vs stress post operation; WANG much improved this AM. No focal deficits. -Head CT as above -Tylenol 325 mg PO Q4H for headache -IV Tylenol 1000 mg Q6H PRN for pain #Chest pain likely musculoskeletal, r/o ACS. -Unlikely ACS as pt had trops neg x2, with non med sternal local non radiated, unknown duration -trop neg x2 -EKG with non-specific ST,T wave changes (TWI in V1 V2, flattened T wave in V3; ECG from May 2017 with T inversion in V1) -cont monitor on tele #Pre-diabetes -HGBA1c 8.8%. -BGMs -will improve after losing weight post gastric sleeve #Vertical Gastric sleeve; POD #1. -Pt had GI series today that showed no evidence of extravasation of contrast, gastric leak, gastric outlet obstruction. -NS @ 75 CC/hr -IS Q1H -Zofran 4 mg IVP Q4H PRN and Metoclopramide 10 mg IVP Q6H for nausea -start bariatric diet, stage 1 #Tinea pedis -Nystatin cream and powder BID #FEN F: NS @ 75 CC/hr E: WNL, recheck BMP in AM N: Bariatric, stage I #Proph -post-op ambulation #Dispo -monitor in tele Visit type - Emergency Visit Emergency Visit: Yes ED Registration Date: 10/17/17 Care time: The patient presented to the Emergency Department on the above date and was hospitalized for further evaluation of their emergent condition. - New Patient This patient is new to me today: Yes Date on this admission: 10/18/17 - Critical Care Critical Care patient: No
[2017-10-18] MEDS ORDERED: oxyCODONE HCL 5 MG TABLET PO PRN (13:05)
[2017-10-18] MEDS ORDERED: ACETAMINOPHEN 325 MG TABLET (FP) PO PRN (13:05)
[2017-10-18] MEDS ORDERED: SODIUM CHLORIDE 1,000 ML IV SCH (13:15)
[2017-10-18] MEDS: SODIUM CHLORIDE 1,000 ML IV SCH (13:45)
[2017-10-18] MEDS: NYSTATIN POWDER 100,000 UNITS/GM - 15 GM TOPICAL POWDER TP SCH (16:47)
[2017-10-18] MEDS: NYSTATIN 100,000 UNIT/GM TOPICAL CREAM 15 GM TUBE TP SCH (16:47)
--- NOTE | 2017-10-18 17:11 | PN ---
Progress Note (short form) - Note Progress Note: POD#1 Afebrile;VSS BP now stable Tolerating PO clear liquids- 3 oz PO tid UGI-no leak, no obstruction WBC-12.2 H/H-13.2/40 P- D/C pt home PO clear liquids- 3 oz po 4-5 times per day F/U in 6 days Instructions given to pt and
--- NOTE | 2017-10-18 18:31 | PN ---
Teaching Attending Note Name of Resident: Andreina Bronson ATTENDING PHYSICIAN STATEMENT I saw and evaluated the patient. I reviewed the resident's note and discussed the case with the resident. I agree with the resident's findings and plan as documented. SUBJECTIVE: No fever or chills, still has minimal pain in his L shoulder when he moves it . No chest pain, no SOB OBJECTIVE: NAD, awake , alert, and oriented. CV: RRR, NO MRG Lungs: CATB Abd: obese, soft, ND, TTP in epigastric area, tape on incision sites. LE : no edema. ASSESSMENT AND PLAN: 37 y/o gentleman with h/o HTN( off meds for 1 yr) , L shoulder sx, pre-diabetes , appendectomy, liver bx, and attempted gastric sleeve sx last year who presented for gastric sleeve sx. Medical team was consulted for HTN urgency 1- Hypertensive urgency: improved - cont home bystolic - low salt diet 2- L sided shoulder pain: liekly MS due to positioning in OR. - repeat EKG last night with TWI in V1 and III ( old findings ) - no concern for ACS this admission, however he needs to see a television announcer for a stress test due to the old EKG changes . this was relayed to him and Surgery team. 3- S/p Gastric sleeve : - per surgery team 4- new diagnosis of DM: A1c of 88. was noted after paient was discharged. i called pt nad informed him of his diagnosis . he was educated about diet, excercise , complications of diabetes, need for podiatry and ophth f/u. he is agreeable to start metformin. he will see his PCP in 1 week. I will prescribe glucometer and he understands that PCp staff will teach him how to use that . 5- Tinea pedis : will send prescription for nystatin
[2017-10-18 23:01] VITALS: BP 158/89; PULSE 59; TEMP 98
[2017-10-19] MEDS ORDERED: NEBIVOLOL 5 MG TABLET (FP) PO SCH (10:00)
--- NOTE | 2017-10-21 07:12 | DS ---
Physical Exam: SUBJECTIVE: No acute events. OBJECTIVE: PHYSICAL EXAM GENERAL:AAOx3, NAD. Obese. HEENT: NC/AT. EOMI. Moist mucus membranes. NECK: Normal range of motion, supple LUNGS: CTA B/L , No wheezes, and no crackles. No accessory muscle use. HEART:RRR, normal S1 and S2 without MRG ABDOMEN: Soft, diffuse tenderness, normoactive bowel sounds, no guarding, surgical dressings clear/dry/intact. MUSCULOSKELETAL: Normal range of motion at all joints. No CVA tenderness. UPPER EXTREMITIES: 2+ pulses, warm, well-perfused. No cyanosis. No clubbing. Cap refill <2 seconds. 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 No calf tenderness. No peripheral edema. strength 5/5 B/L in hip felxion and extension , leg flexion , plantar flexion and extension, sensation intact. NEUROLOGICAL: Cranial nerves II-XII intact. Normal speech. gait not observed , no focal deficit. PSYCHIATRIC: Cooperative. Good eye contact. Appropriate mood and affect. SKIN: Warm, dry, normal turgor, rash fungus between toes LABS HOSPITAL COURSE: Date of Admission:10/17/17 37M w/ pmhx of HTN , morbid obesity, fatty liver,pre diabetics,failed gastric sleeve 2017, presented to the hospital for gastric sleeve surgery. After his procedure, his hospital stay was complicated by elevated blood pressure with systolic in 170s associated with severe occipital headache with nausea but no vomiting. As a result the medical team was asked to evaluate his BP post- procedure. Pt was given IV Hydralazine and Labetolol and pressures decreased to the 150s. He was started on morphine and fluids. During his hospital stay, his headache improved and he was started on PO Bystolic for maintenance of his BP. He additionally complained of chest pain in which he was monitored on tele unit. Trops were neg x2, and EKG showed non-specific ST,T wave changes that were unchanged from previous ECG. Chest pain was evaluated to be likely musculoskeletal but pt was given recommendation to follow up with cardio outpatient for stress test. Pt's symptoms improved and he was discharged home with recommendation to continue taking his BP med and with instructions to follow up with his PCP within 1 week. Date of Discharge: 10/18/17 Minutes to complete discharge: 35 Discharge Summary Reason For Visit: MORBID OBESITY - Instructions Diet, Activity, Other Instructions: You were admitted to the hospital for a vertical gastric sleeve surgery. You were monitored Follow-up with your primary care doctor next week. It is also recommneded by the medical team to follow-up with cardiology as an out patient. Referrals: Scott Mercer [Primary Care Provider] - 1 Week Disposition: HOME - Home Medications Comprehensive Discharge Medication List: Ambulatory Orders Famotidine [Pepcid] 20 mg PO BID #60 tablet 10/17/17 Blood Sugar Diagnostic [Test Strips] 1 each MC DAILY #90 strip 10/18/17 Lancets [Lancets Thin] 1 each MC DAILY #90 each 10/18/17 Metformin HCl [Metformin HCl ER] 1,000 mg PO DAILY #30 tab.er.24 10/18/17 Miscellaneous Medical Supply [Glucometer Device] 1 each SQ ASDIR #1 kit Nebivolol [Bystolic -] 5 mg PO DAILY #30 tab 10/18/17 Nystatin Cream [Mycostatin Cream -] 1 applic TP BID #28 applic 10/18/17 Oxycodone HCl/Acetaminophen [Percocet 5-325 mg Tablet] 1 tab PO Q6H PRN #20 tablet MDD 4 10/18/17 This patient is new to me today: Yes Date on this admission: 10/21/17 Emergency Visit: No Critical Care patient: No - Discharge Referral Referred to [facility] Med P.C.: No
--- NOTE | 2017-10-21 18:48 | PATH ---
Surgical Pathology Report Patient Name: MAGDIEL POLK [facility]. Rec. #: [id number] /Age/Gender: 1980 (Age: 37) / M Account: [id number] Location: 4 W TELEMETRY U Taken: 10/17/2017 Received: 10/18/2017 Reported: 10/21/2017 Physicians: Bo Gomes M.D. Specimen(s) Received GREATER CURVATURE STOMACH Clinical History Morbid obesity Final Diagnosis GREATER CURVATURE OF STOMACH, SLEEVE GASTRECTOMY: PORTION OF STOMACH SHOWING MILD GASTRITIS. IMMUNOSTAIN FOR H. PYLORI IS NEGATIVE. Electronically Signed Kaylah Morales M.D. Gross Description Received in formalin, labeled "greater curvature of stomach," is a 144 gram, 19.0 x 4.0 x 4.0 cm. portion of stomach with a stapled margin of resection. The serosa is steve-jacques with minimal attached fat. The mucosa is steve-pink with normal folds. No mucosal masses are identified. Invoice Classification Clerk sections are submitted in one cassette. /10/18/2017 [facility]10/18/2017
== END 2017-10-18 18:00 | disposition home or self-care (01) | DRG 621 ==
LOC: EDSTATUS 14:30 → JSAMEDAYSX 10-17 09:30 → J4W 10-17 17:15
PROVIDERS: ADMIT Surgery; ATTEND Surgery
PROC: 0DNW4ZZ Release Peritoneum, Percutaneous Endoscopic Approach (ICD-10-PCS; 2017-10-17)
PROC: 0DJ08ZZ Inspection of Upper Intestinal Tract, Via Natural or Artificial Opening Endoscopic (ICD-10-PCS; 2017-10-17)
PROC: 0DB64Z3 Excision of Stomach, Percutaneous Endoscopic Approach, Vertical (ICD-10-PCS; principal; 2017-10-17 11:00)
DX: E66.01 Morbid (severe) obesity due to excess calories (principal); Z68.41 Body mass index [BMI] 40.0-44.9, adult; R73.03 Prediabetes; K66.0 Peritoneal adhesions (postprocedural) (postinfection); K76.0 Fatty (change of) liver, not elsewhere classified; R07.89 Other chest pain; M25.512 Pain in left shoulder; E11.9 Type 2 diabetes mellitus without complications; B35.3 Tinea pedis; G44.89 Other headache syndrome; I16.0 Hypertensive urgency; Z91.14 Patient's other noncompliance with medication regimen; Z93.1 Gastrostomy status
CPT/HCPCS: 36415; 70450-TC; 74241-TC-FY; 80053; 82550; 83036; 84484; 85027; 88305-TC; 93005; 93010; 94010; 94760; J0131; J1644; J7030